=== PATIENT | male | born 1985 | race Caucasian/White ===

== ENCOUNTER 2019-10-19 05:50 | Emergency (ER) | payer SELFPAY ==
[~2019-10-19] VITALS: Ht 180.3 cm; Wt 104.3 kg
[2019-10-19 05:53] VITALS: Ht 180.3 cm; Wt 104.3 kg
[2019-10-19 08:00] VITALS: BP 148/99
== END 2019-10-19 08:00 | disposition home or self-care (01) ==
LOC: ED 05:50
DX: R11.10 Vomiting, unspecified (principal); R10.32 Left lower quadrant pain